=== PATIENT | female | born 1960 | race Caucasian/White ===

== ENCOUNTER 2016-06-29 09:24 | Observation (INO) | payer OTHER ==
[~2016-06-29 09:24] MED LIST: Buffered Lidocaine 1% SYR 3ML* 3 ML/SYR SYRINGE INTRADERM ONE; Dexamethasone IV* 4 MG/ML 1 ML (4 MG) IV SLOW PU ONE; Famotidine IV* 10 MG/ML 2 ML (20 mg) IV ONE; Sodium Citrate/Citric Acid* 15 ML UDC PO ONE
[2016-06-29] MEDS ORDERED: Famotidine IV* 10 MG/ML 2 ML (20 mg) ONE (09:52)
[2016-06-29] MEDS ORDERED: Sodium Citrate/Citric Acid* 15 ML UDC ONE (09:53)
[2016-06-29] MEDS ORDERED: Dexamethasone IV* 4 MG/ML 1 ML (4 MG) ONE (09:53)
[2016-06-29] MEDS ORDERED: Lidocaine 1% INJ* 10 MG/ML 30 ML SDV ONE (11:34)
[2016-06-29] MEDS ORDERED: Midazolam* 1 MG/ML 2 ML VIAL (2 MG) ONE (11:40)
[2016-06-29] MEDS ORDERED: Lidocain 1% EPI 1:100,000 * 30 ML MDV ONE (11:40)
[2016-06-29] MEDS ORDERED: Remifentanil* 2 MG VIAL ONE (12:11)
[2016-06-29] MEDS ORDERED: Propofol* 500 MG/50 ML BTL ONE (13:11)
[2016-06-29] MEDS ORDERED: Ondansetron INJ* 2 MG/ML VIAL IV PRN ×2 (14:54→16:04)
[2016-06-29] MEDS ORDERED: fentaNYL* 50 MCG/ML 2 ML VIAL (100 MCG VIAL) ONE (15:07)
[2016-06-29] MEDS: fentaNYL* 50 MCG/ML 2 ML VIAL (100 MCG VIAL) IV PRN ×2 (15:09→15:31)
[2016-06-29] MEDS ORDERED: oxyCODONE ORAL.SOLN* 5 MG/5 ML UDC ONE (15:54)
[2016-06-29] MEDS ORDERED: Ibuprofen ADULT LIQ* 600 MG/30 ML UDC PO PRN (16:00)
[2016-06-29] MEDS: oxyCODONE ORAL.SOLN* 5 MG/5 ML UDC PO PRN ×2 (16:00→23:11)
[2016-06-29] MEDS ORDERED: oxyCODONE ORAL.SOLN* 5 MG/5 ML UDC PO PRN (16:02)
[2016-06-29] MEDS ORDERED: Ondansetron INJ* 2 MG/ML VIAL ONE (16:03)
[2016-06-29] MEDS ORDERED: Ondansetron TAB* 4 MG PO PRN (16:04)
[2016-06-29] MEDS ORDERED: Acetaminophen ADULT LIQ* 650 MG/20.3 ML UDC PO PRN (16:08)
[2016-06-29] MEDS ORDERED: ESTRADIOL TRANSDERM SCH (17:00)
--- NOTE | 2016-06-29 21:39 | HP ---
HISTORY AND PHYSICAL: DATE OF ADMISSION: 06/29/16 PRIMARY CARE PROVIDER: Noel Chacon MD. ATTENDING PHYSICIAN: Venkat Santo MD* (dictated by Ten Barron NP). CHIEF COMPLAINT: Presents for total thyroidectomy for thyroid carcinoma. HISTORY OF PRESENT ILLNESS: Ms. Clifford is a 56-year-old female with no significant past medical history, who initially presented to the thyroid nodule clinic with a newly diagnosed papillary thyroid carcinoma. The patient was found to have left lobe nodules that were picked up incidentally on a routine physical exam by her primary care provider. The patient underwent fine-needle aspiration with results consistent with a papillary carcinoma. The patient had otherwise been asymptomatic. Due to the patient's findings of a papillary carcinoma, she was scheduled for a total thyroidectomy with Dr. Traylor today. The patient states that she was in her usual health up until her arrival at the hospital. The patient denies any complaints at this time such as fever, chills , shortness of breath, chest pain, nausea, vomiting, or diarrhea. The patient does report some throat discomfort at this time in addition to a headache. Hospitalists were asked to admit this patient in her postoperative period. PAST MEDICAL HISTORY: Papillary carcinoma of the thyroid. PAST SURGICAL HISTORY: 1. Status post tonsillectomy. 2. Status post benign breast lumpectomy. HOME MEDICATIONS: Include: 1. Estradiol 0.25 mg topical every 3 days. 2. Vitamin D 1000 units oral daily. 3. Calcium carbonate-vitamin D 1 tablet oral daily. ALLERGIES: No known drug allergies. FAMILY HISTORY: The patient denies any family history of diabetes mellitus. The patient's father had a history of heart disease. The patient had a grandmother with a history of lung carcinoma. SOCIAL HISTORY: The patient denies tobacco use. She occasionally consumes alcohol. The patient denies recreational drugs. 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 She lives with her , Jamison Davies, who will be her surrogate decision maker in the event she is unable to make decisions for herself. REVIEW OF SYSTEMS: I performed a 14-point review of systems. All the pertinent positives and negatives are mentioned in the history of present illness. Remaining review of systems are negative. PHYSICAL EXAMINATION GENERAL APPEARANCE: The patient is alert, pleasant, appears to be in no acute distress. VITAL SIGNS: Temperature 98.9, heart rate 75, respiratory rate 16, O2 sat 100% on room air, blood pressure 117/70. HEENT: Normocephalic, atraumatic. Pupils are equal and reactive to light. Extraocular movements are intact. RESPIRATORY: There is no accessory muscle use. Lungs are clear to auscultation. CARDIOVASCULAR: Regular rate and rhythm. S1 and S2 are present. There are no murmurs, rubs or gallops heard. ABDOMEN: Soft, nontender, nondistended. There are bowel sounds present x4. EXTREMITIES: There is no lower extremity edema. DP and PT pulses are 2+ and symmetric. MUSCULOSKELETAL: There is no clubbing or cyanosis noted. The patient exhibits good strength in all extremities. NEUROLOGIC: The patient is alert and oriented x3. Cranial nerves II through XII are grossly intact. PSYCHOLOGICAL: The patient is calm and cooperative. SKIN: There is no rashes or abnormalities seen. The patient has an anterior neck incision with Steri-Strips that are clean, dry, and intact and a ISAEL drain that is intact draining serosanguineous drainage. DIAGNOSTIC STUDIES/LABORATORY DATA: Calcium from 06/29/16 at 1500 is 9.1. IMPRESSION: Ms. Clifford is a 56-year-old female with no significant past medical history who presented today for total thyroidectomy with Dr. Traylor for papillary thyroid carcinoma. The hospitalists have been asked to admit the patient. She will be admitted as an observation. ASSESSMENT: 1. Malignant neoplasm of thyroid. Status post total thyroidectomy with Dr. Traylor today. The patient will have serial calciums drawn starting at 9 p.m. today, again at 6 a.m. and again at noon tomorrow. The patient has been notified to please notify staff if she develops numbness or tingling around her lips or mouth or in her fingertips. At this time, the patient has a negative Chvostek and Trousseau sign. The patient's ISAEL drain should be managed and emptied at every shift. Further management will be per Dr. Traylor or the ENT service. The patient will be on calcium carbonate 3 times daily. 2. Fluids, electrolytes, nutrition. The patient will be on a soft diet. 3. DVT prophylaxis. The patient is at low risk and will be encouraged to ambulate and have SCDs. 4. Disposition. Observation. Disposition per ENT. TIME SPENT: The time for this admission was 45 minutes and greater than half of that was spent with the patient and discussing medications, past medical history and the events leading up to their arrival today and performing a physical examination. The case has been reviewed with the attending, Dr. Santo, who agrees with the plan of care. Reviewed by TEN BARRON, MISHA-Sabino 07/06/16 1329 CC: Dr. Chacon; Dr. Traylor* [id number]/[facility] #: [id number] MTDD
[2016-06-29] MEDS: Calcium Carbonate LIQ* 1,250 MG/5 ML UDC PO SCH (23:13)
--- NOTE | 2016-06-30 01:07 | OP ---
OPERATIVE REPORT: DATE OF OPERATION: 06/29/16 DATE OF : 62 SURGEON: Bryan Traylor MD EVENT PROMOTIONS COORDINATOR: Brian Gill MD ANESTHESIA: General. PRE-OP DIAGNOSIS: Papillary thyroid carcinoma. POST-OP DIAGNOSIS: Papillary thyroid carcinoma. OPERATIVE PROCEDURE: Total thyroidectomy. ESTIMATED BLOOD LOSS: Less than 40 cc. SPECIMENS: Total thyroid. DESCRIPTION OF PROCEDURE: This is a 56-year-old woman who was recently diagnosed with papillary thyroid carcinoma following fine needle aspiration of a 2-cm nodule of the left lobe. Preoperative chest x-ray and neck ultrasound were negative. Decision was made to proceed with total thyroidectomy on . The patient was brought to the operating room. General anesthesia was induced and a NIMS oral endotracheal tube was placed. The position was confirmed once the tube was connected to the monitoring device and visually confirmed by the anesthesiologist. The patient was placed on the shoulder roll. The anterior neck was marked and infiltrated with 6 cc of 1% lidocaine with 1: 100,000 epinephrine. The neck was then prepped with Betadine. The patient was draped sterilely and a time-out was performed. A # 15-blade was used to incise skin and platysma. Subplatysmal flaps were raised superiorly and inferiorly. The Viktor retractor was then placed. The strap muscles were divided vertically along their median raphe. The left lobe was addressed first. The strap muscles are reflected off of the left lobe of the thyroid gland. Superior vascular pedicle was dissected initially. The superior pole vessels were ligated with hemoclips near to the capsule of the gland and divided with a LigaSure device. The gland was then reflected medially and the inferior pole region was explored. The tracheoesophageal groove was explored and the recurrent laryngeal nerve was identified. It was stimulated with nerve stimulator to confirm its identity. This was used as a landmark to guide further dissection superiorly. The inferior vascular pedicle was ligated very close to the capsule of the thyroid gland to preserve blood flow to what appeared to be 1 parathyroid gland, likely the superior parathyroid gland. The thyroid was continually reflected medially and the middle thyroid venous drainage was also ligated with hemoclips and divided with the LigaSure device. The nerve was traced to its point of insertion underneath the cricoid muscle and the thyroid was reflected off of the anterior wall of the trachea as Fink' s ligament was carefully divided with bipolar forceps and scissor. With the left lobe freed, the right lobe was then explored again. The superior pole region was explored first. The superior pole vascular structures were identified and ligated with hemoclips and divided with LigaSure device close to the capsule of the thyroid gland. The gland was then rolled medially and the inferior pole region was explored. The recurrent laryngeal nerve was identified in the tracheoesophageal groove and used as a landmark to guide further dissection superiorly. The inferior parathyroid gland was visualized and preserved intact with its blood supply, as was the superior parathyroid gland. The small branches of the inferior vascular blood supply were ligated largely with hemoclips and divided with either with the LigaSure device or scissor. The recurrent laryngeal nerve was followed up to its insertion point in the larynx and the specimen was reflected off of the trachea as Fink's ligament was divided. Once the thyroid was removed, the wound was explored again. Two probable parathyroid glands were seen on the right side with good color and intact blood supply. One candidate parathyroid gland was seen on the left with another second parathyroid gland probably buried in some of the fat inferiorly, although that was not aggressively explored. There were no suspicious lymph nodes evident in the central compartment. The wound was copiously irrigated. A small piece of Surgicel was placed to the region of Fink's ligament bilaterally. A #7 ISAEL drain was placed. The strap muscles were reapproximated with 3-0 Vicryl. The platysma was also closed with 3-0 Vicryl and final skin closure was performed with 5-0 Prolene. Steri-Strips were placed. The drain was placed to bulb suction. The patient was cleaned off Betadine, allowed to arise from anesthesia, extubated and delivered to PACU in stable condition. [id number]/[facility] #: [id number] FAVIOLA
[2016-06-30] MEDS: Calcium Carbonate LIQ* 1,250 MG/5 ML UDC PO SCH (08:14)
[2016-06-30] MEDS: oxyCODONE ORAL.SOLN* 5 MG/5 ML UDC PO PRN (08:14)
[2016-06-30 08:17] VITALS: BP 103/60
--- NOTE | 2016-06-30 10:33 | PN ---
Subjective - Subjective Reason for Note: Discharge Note History: Discharge summary Lazaro Clifford is a primary care patient and an endocrine patient at my medical office. She underwent a total thyroidectomy for papillary carcinoma of the thyroid with Dr. Traylor yesterday. This was uncomplicated. This morning she has some pain in her incision site. She has no paresthesiae or tetany. Her voice is hoarse most likely due to the endotracheal tube - Dr. Traylor told her that her recurrent laryngeal nerves were spared. Active Problems: Active Problems H/O thyroidectomy (Acute) E89.0 Hypothyroidism, postsurgical (Acute) E89.0 Papillary carcinoma of thyroid (Acute) Current Medications: Current Medications Acetaminophen (Tylenol Adult Liq*) 650 mg PO Q4H PRN PRN Reason: PAIN Calcium Carbonate (Calcium Carbonate Liq*) 1,200 mg PO TID [facility] Last Admin: 06/30/16 08:14 Dose: 1,200 mg Lactated Ringer's (Lactated Ringers 1000 Ml Bag*) 1,000 mls @ 100 mls/hr IV PER RATE [facility] Ibuprofen (Motrin Liq Adult*) 800 mg PO Q8H PRN PRN Reason: PAIN Divigel [Estradiol] (Transdermal Gel) 1 dose TRANSDERM Q3D [facility] Last Admin: 06/29/16 21:10 Dose: Not Given Ondansetron HCl (Zofran Inj*) 8 mg IV Q6H PRN PRN Reason: NAUSEA/VOMITING Ondansetron HCl (Zofran Tab*) 8 mg PO Q6H PRN PRN Reason: NAUSEA/VOMITING Oxycodone HCl (Oxycodone Oral.Soln*) 5 mg PO Q4H PRN PRN Reason: PAIN Last Admin: 06/30/16 08:14 Dose: 5 mg Oxycodone HCl (Oxycodone Oral.Soln*) 10 mg PO Q4H PRN PRN Reason: PAIN - SEVERE - Review of Systems Constitutional Symptoms: No: Fever, Night Sweats Pulmonary: Negative: Cough, Sputum, Hemoptysis, Wheezing, Respiratory Distress Cardiology: Negative: Chest Pain, Shortness of Breath Gastroenterology: Negative: Abdominal Pain, Nausea, Change in Bowel Habits Genital - Urinary: Positive: Polyuria Negative: Dysuria, Hematuria Home Medications: Home Medications Medication Instructions Recorded Confirmed Type Estradiol [Divigel] 0.25 mg TOPICAL SEE INSTRUCTIONS 06/07/16 06/29/16 History Calcium Carbonate-Vitamin D W/ 1 mg PO DAILY 06/25/16 06/29/16 History [Caltrate 600+D Plus Sawyer 600-800 mg-Unit] Cholecalciferol [Vitamin D] 1,000 units PO DAILY 06/25/16 06/29/16 History Allergies: Allergies Allergy/AdvReac Type Severity Reaction Status Date / Time No Known Allergies Allergy Verified 06/25/16 15:08 Objective - Vital Signs Vital Signs: Vital Signs 06/29/16 06/29/16 06/29/16 14:55 15:00 15:05 Temperature 99.9 F Pulse Rate 107 108 105 Respiratory 18 20 20 Rate Blood Pressure 137/75 143/79 131/83 (mmHg) O2 Sat by Pulse 98 99 99 Oximetry 06/29/16 06/29/16 06/29/16 15:09 15:15 15:30 Temperature 99.0 F Pulse Rate 91 80 Respiratory 22 14 14 Rate Blood Pressure 145/82 140/85 (mmHg) O2 Sat by Pulse 97 97 Oximetry 06/29/16 06/29/16 06/29/16 15:31 15:45 16:00 Temperature Pulse Rate 80 80 Respiratory 14 14 14 Rate Blood Pressure 134/72 134/82 (mmHg) O2 Sat by Pulse 97 96 Oximetry 06/29/16 06/29/16 06/29/16 16:14 16:30 16:55 Temperature 99.0 F Pulse Rate 82 78 84 Respiratory 14 14 16 Rate Blood Pressure 134/74 133/76 123/70 (mmHg) O2 Sat by Pulse 95 95 98 Oximetry 06/29/16 06/29/16 06/29/16 17:17 18:00 18:51 Temperature 98.9 F 98.6 F Pulse Rate 75 71 Respiratory 16 16 16 Rate Blood Pressure 117/70 130/69 (mmHg) O2 Sat by Pulse 100 97 Oximetry 06/29/16 06/29/16 06/29/16 20:30 21:03 23:11 Temperature 99.3 F Pulse Rate 72 Respiratory 16 16 18 Rate Blood Pressure 118/68 (mmHg) O2 Sat by Pulse 98 Oximetry 06/30/16 06/30/16 06/30/16 00:20 01:11 03:22 Temperature 97.9 F 97.9 F Pulse Rate 68 67 Respiratory 16 16 16 Rate Blood Pressure 101/61 92/58 (mmHg) O2 Sat by Pulse 97 100 Oximetry 06/30/16 06/30/16 06/30/16 07:39 08:00 08:14 Temperature 98.0 F Pulse Rate 66 Respiratory 12 16 16 Rate Blood Pressure 103/60 (mmHg) O2 Sat by Pulse 100 Oximetry 06/30/16 10:14 Temperature Pulse Rate Respiratory 14 Rate Blood Pressure (mmHg) O2 Sat by Pulse Oximetry - Intake and Output Intake and Output: Intake & Output 06/27/16 06/28/16 06/29/16 06/30/16 11:59 11:59 11:59 11:59 Intake Total 450 3174 Output Total 1925 Balance 450 1249 Weight 132 lb Intake: IV Fluids 450 2504 LR 1004 Lactated Ringer's 450 1500 Oral 670 Output: ISAEL #1 25 Urine 1900 ADLs: Meal Record Start: 06/29/16 16: 41 Freq: Status: Active Created 06/29/16 16:41 [id number] (Rec: 06/29/16 16:41 [id number] [id number]) Document 06/29/16 18:15 [id number] (Rec: 06/29/16 18:15 [id number] [id number]) Intake and Output Start: 06/29/16 16: 41 Freq: DAILY@0600,1400,2200 Status: Active Created 06/29/16 16:41 [id number] (Rec: 06/29/16 16:41 [id number] SSU-M04) Document 06/29/16 21:30 [id number] (Rec: 06/30/16 01:52 [id number] [id number]) Document 06/29/16 22:00 [id number] (Rec: 06/29/16 23:11 [id number] SSU-C10) Document 06/29/16 23:45 [id number] (Rec: 06/30/16 01:52 [id number] SSU-C12) Document 06/30/16 02:12 [id number] (Rec: 06/30/16 02:12 [id number] SSU-C02) Document 06/30/16 05:46 [id number] (Rec: 06/30/16 05:47 [id number] [id number]) - Physical Exam General Physical Exam Comment: Thyroidectomy wound clean, no hematoma. She has a hoarse voice - mild. No signs of tetany General: No Cyanosis, No Anemia, No Jaundice, No Clubbing Lungs and Chest: Yes: Chest Expansion Full, Chest Expansion Symetrica, Percussion Note Resonant, Vessicular Breath Sounds. No: Crackles, Wheezes Heart Rate and Rhythm: Regular Additional Cardiovascular: Yes: Normal Heart Sounds. No: Heart Murmur, Pedal Edema Abdominal Exam: Yes: Soft, Bowel Sounds Present. No: Distention, Abdominal Mass , Hepatomegaly, Splenomegaly - Extremities Cranial Nerves II-XII Intact: Yes Limbs: Normal Power, Normal Tone - Neuro Orientation: A/O x3 Speech: Normal Results - Results Lab Results: Laboratory Results - last 24 hr 06/29/16 06/29/16 06/30/16 15:00 20:51 07:26 Calcium 9.1 8.4 L 8.5 L Assessment - Problem List Assessment: Patient Problems H/O thyroidectomy (Acute) Hypothyroidism, postsurgical (Acute) Papillary carcinoma of thyroid (Acute) Thyroid nodule (Acute) Plan: H/O thyroidectomy (Acute) This was performed yesterday. She is doing very well. Her calcium is just below the reference range. We will recheck and if this is acceptable, she will go home today. She will take Tums as an outpatient Hypothyroidism, postsurgical (Acute) She is going to start levothyroxine 112 mcg qdaily tomorrow morning on an empty stomach. I have instructed her not to take anything other than water with this medication and to not eat/take medication for 1 hour afterwards Papillary carcinoma of thyroid (Acute) Pending histopathology/staging Thyroid nodule (Acute) removed If her calcium is > 8, she will be fit for discharge this morning. She will follow with both Dr. Traylor and myself next week as an outpatient. I discussed the above with the patient and her .
[2016-06-30] MEDS ORDERED: Calcium Carbonate CHEW TAB* 500 MG (TUMS) PO SCH (13:00)
[2016-07-02] MEDS ORDERED: Levothyroxine TAB* 112 MCG TAB PO SCH (06:00)
== END 2016-06-30 12:05 | disposition home or self-care (01) ==
LOC: OR 09:24 → SSU 16:54
PROVIDERS: ADMIT Otolaryngology; ATTEND Internal Medicine
PROC: 0GTK0ZZ Resection of Thyroid Gland, Open Approach (ICD-10-PCS; principal; 2016-06-29 11:30)
DX: C73 Malignant neoplasm of thyroid gland (principal); E89.0 Postprocedural hypothyroidism
CPT/HCPCS: 36415; 82310; 88307; A9270-GY; G0378; J1100; J2250; J2405; J2704; J3010